=== PATIENT | male | born 1955 | race Caucasian/White ===

== ENCOUNTER 2017-10-04 20:49 | Emergency (ER) | payer MEDICARE, OTHER ==
[~2017-10-04] VITALS: Ht 172.7 cm; Wt 77.0 kg
[2017-10-04 20:56] VITALS: BP 159/79; PULSE 79; RESP 16; TEMP 98; O2SAT 100
--- NOTE | 2017-10-04 21:14 | PD ---
HPI Chief Complaint: Abdominal Pain Time Seen by Provider: 21:10 Travel History International Travel<30 days: No Contact w/Intl Traveler<30days: No Traveled to known affect area: No History of Present Illness HPI 62-year-old male presents to the emergency department by EMS transport from [facility] for evaluation of abdominal pain. Patient reports he's had lower abdominal pain 3 weeks with worsening last 24 hours 7/10 in intensity. No nausea no vomiting no diarrhea no hematemesis no coffee-ground emesis no melena hematochezia. No reported mucoid stool. Patient is currently on cefepime vancomycin and Flagyl for diagnosis of discitis and continues with ongoing management do the nursing facility for IV antibiotics. Patient denies any chest pain shortness of breath sweats nausea vomiting referred neck jaw back shoulder arm pain. Patient is diabetic. Patient states that they have been giving him increasing doses of insulin to control his blood sugars. Patient is not aware of any anorexia fever or chills. Patient denies any dysuria frequency urgency polyuria polydipsia or polyphagia. Patient rates his pain 7/10 in intensity. No new lower extremity numbness tingling or weakness no bladder or bowel dysfunction no saddle anesthesia. PFSH Past Medical History Narrative Medical Cirrhosis COPD diabetes discitis/osteomyelitis; no surgery; nursing notes reviewed Cirrhosis: Yes COPD: Yes Diabetes: Yes Patient Takes Glucophage: Yes Hypertension: Yes Musculoskeletal: Yes (OSTEOMYELITIS) Neurologic: Yes (SPINAL ABCESS AND GRANULOMA, DIABETIC NEUROPATHY) Tetanus Vaccination: > 5 Years Influenza Vaccination: Yes Social History Alcohol Use: Yes Tobacco Use: No Substance Use: No Allergies-Medications (Allergen,Severity, Reaction): Coded Allergies: No Known Allergies (Unverified , 10/04/17) Reported Meds & Prescriptions Reported Meds & Active Scripts Active Reported Vancomycin Inj (Vancomycin HCl) 1 Gram Inj 750 Mg IV Q12HR Tamsulosin (Tamsulosin HCl) 0.4 Mg Cap 0.4 Mg PO HS Risperdal (Risperidone) 0.25 Mg Tab 0.25 Mg PO HS Proair Hfa (Albuterol Sulfate) 90 Mcg Hfa.aer.ad 2 Puff PO QID Oxycodone (Oxycodone HCl) 5 Mg Cap 5 Mg PO Q4H PRN Novolog Flexpen Inj (Insulin Aspart) 300 Unit/3 Ml Pen 3-12 Units SQ TIDAC Multi Vitamin Daily (Multiple Vitamin) 1 Tab Tab 1 Tab PO DAILY Flagyl (Metronidazole) 500 Mg Tab 500 Mg PO TID Metformin (Metformin HCl) 500 Mg Tab 500 Mg PO BIDPC Magnesium Oxide 400 Mg Tab 400 Mg PO BID Milk of Magnesia Liq (Magnesium Hydroxide) 400 Mg/5 Ml Susp 30 Ml PO DAILY PRN Florastor (Saccharomyces Boulardii) 250 Mg Cap 250 Mg PO BID Famotidine 20 Mg Tab 20 Mg PO BID Flexeril (Cyclobenzaprine HCl) 10 Mg Tab 10 Mg PO TID Clonazepam 0.5 Mg Tab 0.5 Mg PO BID Cefepime Inj (Cefepime HCl) 2 Gm/100 Ml Bagp 2 Gm IV Q12H Narrative Medication See nursing notes Review of Systems Except as stated in HPI: all other systems reviewed are Neg Physical Exam Narrative GENERAL: Well-developed well-nourished female in no acute distress no respiratory distress SKIN: Warm and dry. HEAD: Normocephalic. EYES: No scleral icterus. No injection or drainage. ENT mucous membranes moist airway patent edentulous NECK: Supple, trachea midline. No JVD or lymphadenopathy. CARDIOVASCULAR: Regular rate and rhythm without murmurs, gallops, or rubs. RESPIRATORY: Breath sounds equal bilaterally. No accessory muscle use. GASTROINTESTINAL: Abdomen soft, reproducible right lower quadrant tenderness to palpation, nondistended. MUSCULOSKELETAL: No cyanosis, or edema. BACK: Nontender without obvious deformity. No CVA tenderness. Data Data Last Documented VS Vital Signs Date Time Temp Pulse Resp B/P (MAP) Pulse Ox O2 Delivery O2 Flow Rate FiO2 10/04/17 20:56 98.0 79 16 159/79 (105) 100 Orders Orders Complete Blood Count With Diff (10/04/17 21:10) Comprehensive Metabolic Panel (10/04/17 21:10) Lipase (10/04/17 21:10) Lactic Acid (10/04/17 21:10) Urinalysis - C+S If Indicated (10/04/17 21:10) Ct Abd/Pel W Iv Contrast(Rout) (10/04/17 21:10) Iv Access Insert/Monitor (10/04/17 21:10) Ecg Monitoring (10/04/17 21:10) Oximetry (10/04/17 21:10) Sodium Chloride 0.9% Flush (Ns Flush) (10/04/17 21:15) Electrocardiogram (10/04/17 21:10) Chest, Single Ap (10/04/17 21:10) Troponin I (10/04/17 21:10) Iohexol 350 Inj (Omnipaque 350 Inj) (10/05/17 01:02) Labs Laboratory Tests Test 10/04/17 21:25 10/04/17 21:40 White Blood Count 5.3 TH/MM3 Red Blood Count 2.63 MIL/MM3 Hemoglobin 8.5 GM/DL Hematocrit 24.5 % Mean Corpuscular Volume 93.4 FL Mean Corpuscular Hemoglobin 32.2 PG Mean Corpuscular Hemoglobin Concent 34.5 % Red Cell Distribution Width 15.9 % Platelet Count 147 TH/MM3 Mean Platelet Volume 7.2 FL Neutrophils (%) (Auto) 74.7 % Lymphocytes (%) (Auto) 13.7 % Monocytes (%) (Auto) 10.2 % Eosinophils (%) (Auto) 1.2 % Basophils (%) (Auto) 0.2 % Neutrophils # (Auto) 3.9 TH/MM3 Lymphocytes # (Auto) 0.7 TH/MM3 Monocytes # (Auto) 0.5 TH/MM3 Eosinophils # (Auto) 0.1 TH/MM3 Basophils # (Auto) 0.0 TH/MM3 CBC Comment DIFF FINAL Differential Comment Blood Urea Nitrogen 15 MG/DL Creatinine 0.93 MG/DL Random Glucose 199 MG/DL Total Protein 7.4 GM/DL Albumin 2.2 GM/DL Calcium Level 7.7 MG/DL Alkaline Phosphatase 207 U/L Aspartate Amino Transf (AST/SGOT) 56 U/L Alanine Aminotransferase (ALT/SGPT) 27 U/L Total Bilirubin 0.7 MG/DL Sodium Level 133 MEQ/L Potassium Level 3.8 MEQ/L Chloride Level 99 MEQ/L Carbon Dioxide Level 28.2 MEQ/L Anion Gap 6 MEQ/L Estimat Glomerular Filtration Rate 83 ML/MIN Lactic Acid Level 2.7 mmol/L Troponin I LESS THAN 0.02 NG/ML Lipase 137 U/L Urine Color YELLOW Urine Turbidity CLEAR Urine pH 6.0 Urine Specific [place] 1.007 Urine Protein NEG mg/dL Urine Glucose (UA) NEG mg/dL Urine Ketones NEG mg/dL Urine Occult Blood NEG Urine Nitrite NEG Urine Bilirubin NEG Urine Urobilinogen LESS THAN 2.0 MG/DL Urine Leukocyte Esterase NEG Urine RBC 1 /hpf Urine WBC LESS THAN 1 /hpf Urine Amorphous Sediment RARE Microscopic Urinalysis Comment CULT NOT INDICATED MDM Medical Decision Making Medical Screen Exam Complete: Yes Emergency Medical Condition: Yes Medical Record Reviewed: Yes Interpretation(s) EKG normal sinus rhythm rate [address] elevation or injury pattern or ectopy noted Last Impressions Chest X-Ray 10/04/172109 Signed Impressions: Service Date/Time: Wednesday, October 04, 2017 21:16 - CONCLUSION: No acute cardiopulmonary disease demonstrated. Babar Geronimo MD Abdomen/Pelvis CT 10/04/172109 Signed Impressions: Service Date/Time: Wednesday, October 04, 2017 23:58 - CONCLUSION: 1. Destructive changes at the L2-L3 disc level. The patient is status post stabilization procedure with transpedicular screws at the L1 and L4 levels with posterior stabilization rods present. There is increased soft tissue density in the paraspinous soft tissues and retroperitoneum at this level. This would suggest acute process. This could all be from discitis. If the surgery was remote, a new superimposed abnormality at the disc level with have to be suspected. 2. Tiny nonobstructing renal stone. 3. Right liver with moderate ascites. Babar Russo MD CBC & BMP Diagram 10/04/17 21:25 Total Protein 7.4, Albumin 2.2 L, Calcium Level 7.7 L, Alkaline Phosphatase 207 H, Aspartate Amino Transf (AST/SGOT) 56 H, Alanine Aminotransferase (ALT/SGPT) 27, Total Bilirubin 0.7 Vital Signs Date Time Temp Pulse Resp B/P (MAP) Pulse Ox O2 Delivery O2 Flow Rate FiO2 10/04/17 20:56 98.0 79 16 159/79 (105) 100 Differential Diagnosis Abdominal pain diverticulitis colitis UTI renal colic atypical appendicitis Narrative Course Specimens collected and sent for resulting Patient resting comfortably voicing no concerns or complaints total white cell count is within normal limits lactic acid is mildly elevated but patient has not received any IV fluids chemistries are unremarkable CT abdomen and pelvis shows inflammatory changes consistent with acute discitis this is been discussed with reading radiologist consistent with recent surgical intervention and is aware of ongoing antibiotic at this time does not appear to be an acute process relative to recent history provided would be concerning if this was a new finding since surgery if surgery been done a year ago or longer. Discussed imaging studies with the reading radiologist--inflammatory changes in the lumbar spine area consistent with recent acute diagnosis since 08/23/17 and recent surgery for discitis and epidural abscess these are not acute findings that suggest something is occurring now are consistent with history of intervention within the past 6 weeks. No evidence for appendicitis. Diagnosis Primary Impression: Abdominal pain Qualified Codes: R10.31 - Right lower quadrant pain Referrals: Primary Care Physician Patient Instructions: General Instructions Additional Instructions: Continue current medications as presently prescribed Continue IV antibiotics as presently prescribed Monitor temperature every 4 hours with thermometer take acetaminophen as needed for fever 100.4 days Fahrenheit or greater Return to the emergency department for any concerns worsening condition or fever Follow-up with your managing physician Med/Other Pt SpecificInfo: No Change to Meds Disposition: 03 DISCHARGE TO SNF Condition: Stable Viji Nguyen MD Oct 04, 2017 21:14
[2017-10-04] MEDS ORDERED: SODIUM CHLORIDE 0.9% FLUSH 10 ML FLUSH IV FLUSH PRN (21:15)
[2017-10-04 21:51] LABS: AUTOMATED NEUTROPHIL # 3.9 TH/MM3 (1.8-7.7); BASOPHIL % 0.2 % (0.0-2.0); EOSINOPHIL # 0.1 TH/MM3 (0-0.4); EOSINOPHIL % 1.2 % (0.0-4.0); HEMATOCRIT 24.5 % (39.0-51.0); HEMOGLOBIN 8.5 GM/DL (13.0-17.0); LYMPH % 13.7 % (9.0-44.0); LYMPHOCYTE # 0.7 TH/MM3 (1.0-4.8); MEAN CELL VOLUME 93.4 FL (80.0-100.0); MEAN CORPUSCULAR HEMOGLOBIN 32.2 PG (27.0-34.0); MEAN CORPUSCULAR HGB CONC 34.5 % (32.0-36.0); MEAN PLATELET VOLUME 7.2 FL (7.0-11.0); MONO % 10.2 % (0.0-8.0); MONOCYTE # 0.5 TH/MM3 (0-0.9); NEUT % 74.7 % (16.0-70.0); PLATELET COUNT 147 TH/MM3 (150-450); RED BLOOD COUNT 2.63 MIL/MM3 (4.50-5.90); RED CELL DISTRIBUTION WIDTH 15.9 % (11.6-17.2); WHITE BLOOD COUNT 5.3 TH/MM3 (4.0-11.0)
--- NOTE | 2017-10-04 21:51 | RADRPT ---
EXAM DATE/TIME: 10/04/2017 21:16 [facility] COMPARISON: No previous studies available for comparison. INDICATIONS : Evaluate for free air MEDICAL HISTORY : None. SURGICAL HISTORY : None. ENCOUNTER: Initial ACUITY: 2 weeks PAIN SCORE: 7/10 LOCATION: Bilateral chest FINDINGS: A single view of the chest demonstrates the lungs to be symmetrically aerated without evidence of mas s, infiltrate or effusion. The cardiomediastinal contours are unremarkable. Osseous structures are intact. CONCLUSION: No acute cardiopulmonary disease demonstrated. Babar Geronimo MD on October 04, 2017 at 21:48 Board Certified Radiologist. This report was verified electronically.
[2017-10-04 21:57] LABS: AMORPHOUS SEDIMENT, URINE RARE; BILIRUBIN, URINE NEG (NEG); BLOOD, URINE NEG (NEG); GLUCOSE,URINE NEG (NEG); KETONE, URINE NEG (NEG); NITRITE,URINE NEG (NEG); URINE COLOR YELLOW (YELLW/STRAW); URINE LEUKOCYTE ESTERASE NEG (NEG)
[2017-10-04 22:33] LABS: ALBUMIN 2.2 GM/DL (3.4-5.0); ALT (GPT) 27 U/L (12-78); AST (GOT) 56 U/L (15-37); BICARBONATE 28.2 MEQ/L (21.0-32.0); BLOOD UREA NITROGEN 15 MG/DL (7-18); CALCIUM 7.7 MG/DL (8.5-10.1); CHLORIDE 99 MEQ/L (98-107); CREATININE 0.93 MG/DL (0.60-1.30); GLOMERULAR FILTRATION RATE 83 ML/MIN (>89); GLUCOSE,RANDOM 199 MG/DL (74-106); LIPASE 137 U/L (73-393); SODIUM (NA) 133 MEQ/L (136-145)
[2017-10-04 22:37] LABS: ALKALINE PHOSPHATASE 207 U/L (45-117); TOTAL BILIRUBIN ADULT 0.7 MG/DL (0.2-1.0); TOTAL PROTEIN 7.4 GM/DL (6.4-8.2); TROPONIN I LESS THAN 0.02 NG/ML (0.02-0.05)
[2017-10-04] MEDS ORDERED: OXYC1CAP PO (22:53)
[2017-10-04] MEDS ORDERED: ALBUAER3 PO (22:53)
[2017-10-04] MEDS ORDERED: CLON0.5T PO (22:53)
[2017-10-04] MEDS ORDERED: MULT1TAB46 PO (22:53)
[2017-10-04] MEDS ORDERED: MAGN400T2 PO (22:53)
[2017-10-04] MEDS ORDERED: CYCL10TA PO (22:53)
[2017-10-04] MEDS ORDERED: METF500T PO (22:53)
[2017-10-04] MEDS ORDERED: VANC1000P IV (22:53)
[2017-10-04] MEDS ORDERED: TAMS0.4C4 PO (22:53)
[2017-10-04] MEDS ORDERED: MILKSUS PO (22:53)
[2017-10-04] MEDS ORDERED: RISP.25 PO (22:53)
[2017-10-04] MEDS ORDERED: CEFE2INJ2 IV (22:53)
[2017-10-04] MEDS ORDERED: FLOR250C PO (22:53)
[2017-10-04] MEDS ORDERED: METR-1 PO (22:53)
[2017-10-04] MEDS ORDERED: NOVOINJ3 SQ (22:53)
[2017-10-04] MEDS ORDERED: FAMO20TA2 PO (22:53)
--- NOTE | 2017-10-05 00:52 | RADRPT ---
EXAM DATE/TIME: 10/04/2017 23:58 [facility] COMPARISON: No previous studies available for comparison. INDICATIONS : Abdomen pain. IV CONTRAST: 100 cc Omnipaque 350 (iohexol) IV ORAL CONTRAST: No oral contrast ingested. RADIATION DOSE: 15.41 CTDIvol (mGy) MEDICAL HISTORY : Hypertension. SURGICAL HISTORY : spine ENCOUNTER: Initial ACUITY: 1 day PAIN SCALE: 5/10 LOCATION: Bilateral abdomen TECHNIQUE: Volumetric scanning of the abdomen and pelvis was performed. Using automated exposure control and ad justment of the mA and/or kV according to patient size, radiation dose was kept as low as reasonably achievable to obtain optimal diagnostic quality images. DICOM format image data is available electro nically for review and comparison. FINDINGS: LOWER LUNGS: There is linear atelectasis or scarring at the lung bases. LIVER: There are cirrhotic changes in the liver. No focal hepatic lesion is seen. SPLEEN: The spleen is diffusely enlarged measuring 15.6 cm in length. PANCREAS: Within normal limits. KIDNEYS: There is a 2 mm nonobstructing right renal stone. There is a 0.9 cm hypodensity at the inferior media l right kidney likely related to a cyst. ADRENAL GLANDS: Within normal limits. VASCULAR: There is no aortic aneurysm. BOWEL/MESENTERY: A film is made of a duodenal diverticulum. The bowel is unremarkable. There is a moderate amount of a scites present. ABDOMINAL WALL: Within normal limits. RETROPERITONEUM: There is increased density in the paraspinous soft tissues at the L2-L3 level. This includes some ind uration in the retroperitoneum at this level. BLADDER: No wall thickening or mass. REPRODUCTIVE: Within normal limits. INGUINAL: There is no lymphadenopathy or hernia. MUSCULOSKELETAL: There are transpedicular screws at the L1 and L4 levels. There are destructive changes seen at the in ferior aspect of L2 and the superior aspect of L3. The patient is status post laminectomy at the L2-L 3 levels. This increased soft tissue density the paraspinous soft tissues are retroperitoneum at this level. There is degenerative change of the L5-S1 level. There is evidence of a tract presumably from prior intramedullary dustin of the left proximal femur. The dustin is no longer present. CONCLUSION: 1. Destructive changes at the L2-L3 disc level. The patient is status post stabilization procedure wi th transpedicular screws at the L1 and L4 levels with posterior stabilization rods present. There is increased soft tissue density in the paraspinous soft tissues and retroperitoneum at this level. This would suggest acute process. This could all be from discitis. If the surgery was remote, a new super imposed abnormality at the disc level with have to be suspected. 2. Tiny nonobstructing renal stone. 3. Right liver with moderate ascites. Babar Russo MD on October 05, 2017 at 0:40 Board Certified Radiologist. This report was verified electronically.
[2017-10-05] MEDS ORDERED: IOHEXOL 350 MG/ML 10 ML VIAL (for RAD DIAG) IVCONTRAST ONE (01:02)
--- NOTE | 2017-10-05 15:41 | EKG ---
Date Performed: 10/04/2017 Time Performed: 21:00:38 PTAGE: 62 years EKG: Sinus rhythm NORMAL ECG NO PREVIOUS TRACING DOCTOR: Alberto Oliveira Interpretating Date/Time 10/05/2017 15:39:55
== END 2017-10-05 05:28 ==
LOC: NEPC 20:49 → NEPD 10-05 05:28
DX: R10.31 Right lower quadrant pain (principal); N20.0 Calculus of kidney; R18.8 Other ascites; E11.9 Type 2 diabetes mellitus without complications; K74.60 Unspecified cirrhosis of liver; J44.9 Chronic obstructive pulmonary disease, unspecified; I10 Essential (primary) hypertension; M86.9 Osteomyelitis, unspecified; Z79.899 Other long term (current) drug therapy
CPT/HCPCS: 71045; 74177; 80053; 81001; 83605; 83690; 84484; 85025; 93005; 99285; Q9967